=== PATIENT | male | born 1995 | race Caucasian/White ===

== ENCOUNTER 2018-12-10 01:00 | Emergency (ER) | payer SELFPAY ==
--- NOTE | 2018-12-10 01:52 | ER Document Report ---
ED General - General Chief Complaint: Chest Pain Stated Complaint: CHEST PAIN Time Seen by Provider: 12/10/18 01:39 Notes: Patient is a 23-year-old male that comes to the emergency department for chief complaint of chest pain. He states that around midnight he woke up, he felt discomfort along the left side of his chest, he states that then his face went numb and he became very concerned. He states he felt like he was having "a panic attack", however he has never experienced facial numbness with this before and therefore he came in to be evaluated. He denies difficulty breathing, dizziness, palpitations, nausea/vomiting, abdominal pain. He states he has been evaluated on multiple occasions in the past for similar chest pain. He states that he does not take any medications for anxiety/panic attack because he does not like it. He smokes cigarettes, states he no longer drinks alcohol, denies ever using recreational drugs. He denies personal family history of cardiac disease or blood clot. Only past medical history reported is removal of a testicle. He denies any current symptoms. - Related Data Allergies/Adverse Reactions: No Known Drug Allergies Allergy (Verified 12/10/18 02:02) Past Medical History - General Information source: Patient - Social History Smoking Status: Current Every Day Smoker Smoking Education Provided: Yes - <3 min Frequency of alcohol use: None Drug Abuse: None Lives with: Alone Family History: Reviewed & Not Pertinent - Medical History Medical History: Negative Surgical Hx: Negative - Immunizations Immunizations up to date: Yes Hx Diphtheria, Pertussis, Tetanus Vaccination: Yes Review of Systems - Review of Systems Constitutional: No symptoms reported EENT: No symptoms reported Cardiovascular: See HPI Respiratory: No symptoms reported Gastrointestinal: No symptoms reported Genitourinary: No symptoms reported Male Genitourinary: No symptoms reported Musculoskeletal: No symptoms reported Skin: No symptoms reported Hematologic/Lymphatic: No symptoms reported Neurological/Psychological: See HPI Physical Exam - Vital signs Vitals: Temp Pulse Resp BP Pulse Ox 97.8 F 55 L 22 H 125/78 100 12/10/18 01:17 12/10/18 01:17 12/10/18 01:17 12/10/18 01:17 12/10/18 01:17 - Notes Notes: GENERAL: Alert, interacts well. No acute distress. HEAD: Normocephalic, atraumatic. EYES: Pupils equal, round, and reactive to light. Extraocular movements intact. ENT: Oral mucosa moist, tongue midline. Oropharynx unremarkable. Airway patent. NECK: Full range of motion. Supple. Trachea midline. LUNGS: Clear to auscultation bilaterally, no wheezes, rales, or rhonchi. No respiratory distress. HEART: Borderline bradycardia, normal rhythm, no murmur ABDOMEN: Soft, non-tender. Non-distended. Bowel sounds present in all 4 quadrants. GENITOURINARY: Deferred EXTREMITIES: Moves all 4 extremities spontaneously. No edema, normal radial and dorsalis pedis pulses bilaterally. No cyanosis. BACK: no cervical, thoracic, lumbar midline tenderness. No saddle anesthesia, normal distal neurovascular exam. NEUROLOGICAL: Alert and oriented x3. Normal speech. Cranial nerves II through XII generally intact. PSYCH: Speaks quietly, but otherwise normal affect, normal mood. SKIN: Warm, dry, normal turgor. No rashes or lesions noted. Course - Re-evaluation Re-evalutation: Physical examination is very unremarkable including normal neurological exam. Normal lung auscultation, unremarkable vital signs. Chest x-ray is unremarkable. Patient is asymptomatic on my evaluation. Because of this work- up, reported symptoms, and the fact that patient has no current symptoms I have a very low suspicion of acute intrathoracic etiology. I discussed work-up with patient. Patient states satisfaction and states he is ready to leave. He denies suicidal or homicidal ideations dates he thinks he just needs to sleep better. He does have Ambien for this but usually does not use it. He states he plans on going home and using it as prescribed tonight. Discussed follow-up and return precautions. Patient states understanding and agreement with plan. - Vital Signs Vital signs: Temp Pulse Resp BP Pulse Ox 98.6 F 67 14 126/76 H 99 12/10/18 03:19 12/10/18 03:19 12/10/18 03:19 12/10/18 03:19 12/10/18 03:19 - EKG Interpretation by Me Additional EKG results interpreted by me: EKG showing sinus bradycardia at a rate of 52. QTc is 402, ME interval is 156. No T wave inversions or ST segment changes in consecutive leads. Large S waves and R waves in leads V2-V3 and leads V4-V5 respectively. Patient is very fit, slim, tall, formerly active duty. Discharge - Discharge Clinical Impression: Paresthesia Chest pain Qualifiers: Chest pain type: unspecified Qualified Code(s): R07.9 - Chest pain, unspecified Condition: Stable Disposition: HOME, SELF-CARE Additional Instructions: The cause of panic attacks is unknown. Symptoms can include chest pain, shortness of breath, palpitations, sweats, and a sense of smothering or impending doom. In time, the panic attacks can lead to generalized anxiety and phobias. Because the symptoms can mimic heart attack, pulmonary embolism, and other serious diseases, the physician has evaluated you for these conditions. There is no evidence of a serious problem. An acute panic attack usually goes away by itself without treatment. A severe attack can be treated with medicine to calm you. Long-term, antidepressant medicines may help prevent attacks. Counselling can also be very beneficial in dealing with panic attacks. Panic attacks are less likely if you are getting regular exercise, proper diet, and plenty of sleep. It's normal for panic attacks to cause many frightening symptoms. However, you should call or return if your symptoms change significantly or if you are worsening.
--- NOTE | 2018-12-10 02:40 | RADIOLOGY REPORT (SQ) ---
EXAM DESCRIPTION: XR CHEST 2 VIEWS COMPLETED DATE/TME: 12/10/2018 01:47 CLINICAL HISTORY: 23 years, Male, chest pain COMPARISON: None. NUMBER OF VIEWS: Two TECHNIQUE: Two views of the chest LIMITATIONS: None. FINDINGS: The lungs are clear. The heart is normal in size. There is no pneumothorax or pleural effusion. There is no acute fracture IMPRESSION: No acute cardiopulmonary abnormality copyright 2010 [employer]- All Rights Reserved
[2018-12-10 03:23] VITALS: BP 126/76
--- NOTE | 2018-12-10 17:42 | EKG REPORT ---
SEVERITY:- ABNORMAL ECG - SINUS RHYTHM PROBABLE LEFT VENTRICULAR HYPERTROPHY : Confirmed by: Mallory Wu MD 10-Dec-2018 17:42:10
== END 2018-12-10 03:23 | disposition home or self-care (01) ==
LOC: ER 01:00
DX: R20.2 Paresthesia of skin (principal); R07.9 Chest pain, unspecified; F17.200 Nicotine dependence, unspecified, uncomplicated
CPT/HCPCS: 71046; 93005; 93010; 99285